=== PATIENT | female | born 1990 | race Caucasian/White ===

== ENCOUNTER → 2023-12-09 15:15 | Outpatient (CLI) | payer OTHER, SELFPAY ==
[2023-12-11 13:11] LABS: Candida species Negative (Negative); Gardnerella vaginalis Negative (Negative); Trichomoas vaginalis Negative (Negative)
== END ==
PROVIDERS: PCP Family Medicine; Visit Provider Student in an Organized Health Care Education/Training Program
DX: N89.8 Other specified noninflammatory disorders of vagina (principal)
CPT/HCPCS: 87480; 87510; 87660